=== PATIENT | female | born 1965 | race Caucasian/White ===

== ENCOUNTER 2017-11-13 02:25 | Emergency (ER) | payer BC, OTHER ==
[~2017-11-13] VITALS: Ht 167.6 cm; Wt 108.0 kg
[~2017-11-13 02:25] MED LIST: ASPIR-LOW81 MG PO; CHEWABLE MULTI1 EACH PO; CYANOCOBALAM1000 MCG PO; DAILY VALUE1 EACH PO; DELTASONE10 MG; GABAPENTIN300 MG PO; MELOXICAM15 MG PO; OMEPRAZOLE40 M1 PO; VITAMIN D-32000 UNI1 PO; VITAMIN D2000 UNIT PO
[2017-11-13 04:48] LABS: C DIFF TOXIN NEGATIVE (NEGATIVE)
[2017-11-13 06:51] LABS: HEMATOCRIT 34.5 % (36.0-46.0); MCH 31.7 PG (29.0-34.0); MCHC 34.8 G/DL (30.0-36.0); MCV 91.3 FL (83-99); RBC DIS.WIDTH-CV 12.1 % (11.8-14.6); RBC DIS.WIDTH-SD 40.7 % (39-53); RED BLOOD COUNT 3.78 M/uL (3.80-5.20); WHITE BLOOD COUNT 5.3 K/uL (4.1-10.2)
[2017-11-13 07:13] LABS: PLAT.SUFFICIENCY ADEQUATE; PLATELET COUNT 206 K/uL (156-360)
[2017-11-13 07:23] LABS: ALBUMIN 3.6 G/DL (3.2-4.8); CHLORIDE 108 MEQ/L (99-109); POTASSIUM 3.2 MEQ/L (3.7-5.4); SODIUM 140 MEQ/L (136-147); TOTAL BILIRUBIN 0.5 MG/DL (0.0-1.0)
[2017-11-13 07:28] LABS: ALKALINE PHOSPHATASE 57 IU/L (3-129); ALT (GPT) 18 IU/L (3-49); AST (GOT) 20 IU/L (2-34); CREATININE 0.5 MG/DL (0.6-1.3); GFR ESTIMATE (CALCULATED) > 59 mL/min/; GLUCOSE 94 mg/dL (70-99); TOTAL PROTEIN 5.8 G/DL (6.4-8.3); UREA NITROGEN (BUN) 9 mg/dL (9-23)
[2017-11-13] MEDS ORDERED: BENTYL20 MG PO (08:21)
[2017-11-13] MEDS ORDERED: ZOFRAN4 MG PO (08:21)
[2017-11-13] MEDS ORDERED: IMODIUM A-D2 M2 PO (08:21)
[2017-11-13 09:07] VITALS: BP 102/69
== END 2017-11-13 09:21 | disposition home or self-care (01) ==
LOC: EME 02:25
DX: K52.9 Noninfective gastroenteritis and colitis, unspecified (principal); E87.6 Hypokalemia; K57.30 Diverticulosis of large intestine without perforation or abscess without bleeding; Z90.710 Acquired absence of both cervix and uterus; Z87.891 Personal history of nicotine dependence
CPT/HCPCS: 74177; 80053; 81003; 84702; 85027; 87493; 99281; 99285; J2405; J3010; J7030